=== PATIENT | male | born 1940 | race Asian ===

== ENCOUNTER → 2024-05-25 | Outpatient (BNVA) | payer MEDICARE, MEDICAID, SELFPAY | END | disposition home or self-care (01) | PROVIDERS: PCP Family Medicine; Referring Provider Urology; Visit Provider Urology | DX: N40.1 Benign prostatic hyperplasia with lower urinary tract symptoms (principal); N13.8 Other obstructive and reflux uropathy; C61 Malignant neoplasm of prostate; K59.09 Other constipation; E11.9 Type 2 diabetes mellitus without complications; F17.210 Nicotine dependence, cigarettes, uncomplicated; K21.9 Gastro-esophageal reflux disease without esophagitis | CPT/HCPCS: 81003; 99212; G0463 ==

== ENCOUNTER → 2024-11-23 | Outpatient (BNVA) | payer MEDICARE, MEDICAID, SELFPAY | END | disposition home or self-care (01) | PROVIDERS: PCP Nurse Practitioner Family; Referring Provider Nurse Practitioner Family; Visit Provider Urology | DX: N40.1 Benign prostatic hyperplasia with lower urinary tract symptoms (principal); N13.8 Other obstructive and reflux uropathy; C61 Malignant neoplasm of prostate; R97.20 Elevated prostate specific antigen [PSA]; E11.9 Type 2 diabetes mellitus without complications; I10 Essential (primary) hypertension; K59.09 Other constipation; F17.210 Nicotine dependence, cigarettes, uncomplicated; Z71.6 Tobacco abuse counseling; J44.9 Chronic obstructive pulmonary disease, unspecified; K21.9 Gastro-esophageal reflux disease without esophagitis | CPT/HCPCS: 81003; 99212; G0463 ==

== ENCOUNTER → 2025-02-23 | Outpatient (BNVA) | payer MEDICARE, MEDICAID, SELFPAY | END | disposition home or self-care (01) | PROVIDERS: PCP Nurse Practitioner Family; Referring Provider Nurse Practitioner Family; Visit Provider Urology | DX: C61 Malignant neoplasm of prostate (principal); N40.0 Benign prostatic hyperplasia without lower urinary tract symptoms; F17.210 Nicotine dependence, cigarettes, uncomplicated | CPT/HCPCS: 81003; 99212; G0463 ==

== ENCOUNTER 2025-03-13 13:09 | Emergency (ER) | payer MEDICARE, MEDICAID, SELFPAY ==
--- NOTE | 2025-03-13 13:16 | PD.EDSOB ---
ED SOB =RME/HPI General Chief Complaint: Shortness of Breath/Dyspnea Stated Complaint: SOB Time Seen by Provider: 03/13/25 13:23 Arrival date/time: 03/13/25 13:09 Limitations: no limitations RME / HPI RME / HPI Narrative: DR. LINK MAIN ED EVALUATION: 84-year-old male with history of COPD presents to the Emergency Department with complaint of increased shortness of breath today compared to his usual baseline. He denies fevers, chills, chest pain, cough, or any other associated symptoms. Oxygen in place. Related Data Home Medications ?Medication ?Instructions ?Recorded ?Confirmed ferrous sulfate 325 mg (65 mg 325 mg PO QDAY 06/03/19 02/23/25 iron) tablet metformin 500 mg tablet 500 mg PO BID 06/03/19 02/23/25 (Glucophage) Previous Rx's ?Medication ?Instructions ?Recorded albuterol sulfate 2.5 mg/0.5 mL 2.5 mg (0.5 mL) inhalation Q20M 03/13/25 solution for nebulization shortness of breath #30 ea albuterol sulfate 90 mcg/actuation 2 puff inhalation Q6H PRN 03/13/25 aerosol inhaler (Ventolin HFA) shortness of breath or wheezing #8.5 grams prednisone 20 mg tablet See Taper PO QDAY allergic 03/13/25 reaction #18 tabs Allergies Allergy/AdvReac Type Severity Reaction Status Date / Time No Known Allergies Allergy Verified 03/13/25 13:32 Review of Systems Review of Systems Systems Reviewed: All systems reviewed, normal except as documented Past Medical History Past Medical History RESPIRATORY: Positive Chronic Obstructive Pulmonary Disease (COPD), Asthma and Pneumonia GASTROINTESTINAL: Positive Gastrointestinal Disorders and Gastroesophageal Reflux Disease MUSCULOSKELETAL: Positive Musculoskeletal Disorders and Degenerative Joint Disease ENDOCRINE: Positive Endocrine Disorders and Diabetes Mellitus Type 2 HEMATOLOGIC: Positive Anemia Surgical History SURGICAL: Positive Abdominal Surgery Social History SMOKING STATUS: Current every day smoker SUBSTANCE USE: does not use ALCOHOL: Never ED Exam General Limitations: Present no limitations General appearance: Present alert, in no apparent distress and other (chronically ill appearing, thin; oxygen in place) Head Head exam: Present atraumatic Eye Eye exam: Present normal appearance, PERRL and EOMI ENT ENT exam: Present normal exam, normal oropharynx and mucous membranes moist Neck Neck exam: Present normal inspection, full ROM and trachea midline Chest Chest inspection: Present normal inspection and symmetric chest wall rise Respiratory Respiratory exam: Present other (bibasilar crackles) Cardiovascular Cardiovascular exam: Present regular rate, normal rhythm and normal heart sounds Abdominal Exam Abdominal exam: Present soft and normal bowel sounds Extremities Exam Extremities exam: Present normal inspection and full ROM Back Exam Back exam: Present normal inspection and full ROM Neurological Exam Neurological exam: Present alert, oriented X3 and CN II-XII intact Psychiatric Psychiatric exam: Present normal affect and normal mood Skin Skin exam: Present warm, dry, intact and normal color Course Quality Measures none Orders Category Date Time Status EKG (ED ONLY) *Do not use* NOW Care 03/13/25 13:24 Completed Insert [Insert IV] NOW Care 03/13/25 13:24 Active CXRP [XR chest 1V portable] Stat Exams 03/13/25 15:10 Completed EKG (ED Only) Stat Exams 03/13/25 13:24 Draft B-Type Natriuretic Peptide Stat Lab 03/13/25 14:15 Completed Blood Culture (Lab) Stat Lab 03/13/25 14:15 Received CBC Stat Lab 03/13/25 14:15 Completed Comprehensive Metabolic Panel Stat Lab 03/13/25 14:15 Completed Lactic Acid [Lactate (Lactic Acid)] Stat Lab 03/13/25 14:15 Completed Magnesium Stat Lab 03/13/25 14:15 Completed Partial Thromboplastin Time Stat Lab 03/13/25 14:15 Completed Prothrombin Time with INR Stat Lab 03/13/25 14:15 Completed Troponin I Stat Lab 03/13/25 14:15 Completed Urinalysis Stat Lab 03/13/25 16:42 Completed Venous Blood Gas Stat Lab 03/13/25 14:15 Completed ALBUTEROL RT 0.5ml [Proventil Rt 0.5ml] Med 03/13/25 13:24 Discontinued 5 mg INH X1 ONE Furosemide [Lasix Inj] Med 03/13/25 17:13 Discontinued 20 mg IVP X1 ONE MethylPREDNISolone.* [SoluMEDROL Inj] Med 03/13/25 13:24 Discontinued 125 mg IVP X1 ONE Potassium Chloride [K-Dur] Med 03/13/25 13:28 Discontinued 40 meq PO X1 ONE Sodium Chloride 0.9% 1000 ml [Ns] 1,000 ml Med 03/13/25 13:28 Discontinued IV 999 mls/hr Sodium Chloride 0.9% 500 ml [Ns] 500 ml Med 03/13/25 13:24 Discontinued IV 999 mls/hr Sodium Chloride Rt Karen 0.9% [NS Rt Karen 0.9%] Med 03/13/25 13:24 Active 3 ml INH PRN PRN Vital Signs Vital signs: Vital Signs Temperature 97.5 F 03/13/25 13:18 Pulse Rate 91 03/13/25 13:18 Respiratory Rate 20 03/13/25 13:18 Blood Pressure 139/76 H 03/13/25 13:18 Pulse Oximetry (%) 95 03/13/25 13:18 Oxygen Delivery Method Nasal Cannula 03/13/25 13:18 Oxygen Flow Rate 4 03/13/25 13:18 Shortness of Breath / Dyspnea MDM Narrative MDM Narrative:: I, Rima Warner, am scribing for and in the presence of Dr. Link. 84-year-old male with worsening shortness of breath beyond baseline COPD. Exam shows bibasilar crackles and chronic ill appearance. Workup initiated for COPD exacerbation versus infectious or cardiac process. Differential diagnoses include COPD exacerbation, pneumonia, and CHF exacerbation. 1721: Patient will be discharged with COPD exacerbation and pulmonary vascular congestion. Patient data External records reviewed:: [facility] previous records Clinical information provided by:: patient Social determinants that could affect healthcare access:: other (specify) (smokes) Patient has the following chronic illnesses:: COPD How is presenting disease/condition affected by chronic disease/condition?: caused by Evaluation data The following diagnostics were reviewed and interpreted by me:: lab results and EKG tracing(s) (My interpretation: EKG performed at 1332 hours, sinus rhythm, rate 90, no acute changes, no STEMI) Lab and/or radiology exams considered but not ordered:: none Interpretation Summary: Procedure(s): XR chest 1V portable Accession Number(s): [id number] cc: Mamadou Link MD; Pedro Perez MD~ EXAMINATION: AP chest single view TECHNIQUE: AP portable semiupright chest single view Date and time: March 13, 2025, 1524 hours, comparison February 27, 2023 INDICATIONS: Shortness of breath chest pain today. FINDINGS: Normal heart size Ectatic thoracic aorta Moderate vascular congestion. No lobar pneumonia or philippe pulmonary edema Prominent osteopenia IMPRESSION: Moderate vascular congestion No philippe pulmonary edema, no lobar pneumonia Dictated By: Pedro Perez MD Medications / Prescriptions Medications or Prescriptions considered but not ordered:: none Medication administrations:: Medication Administration History Sodium Chloride (Sodium Chloride Rt Karen 0.9% 3 Ml Nebu) 3 ml INH PRN PRN PRN Reason: SOLN Stop: 04/12/25 13:23 Last Admin: 03/13/25 13:37 Dose: 3 ml Documented By: PATSY Discontinued Medications Albuterol (Albuterol Rt 2.5 Mg/0.5 Ml Nebu) 5 mg INH X1 ONE Stop: 03/13/25 13:25 Last Admin: 03/13/25 13:37 Dose: 5 mg Documented By: PATSY Furosemide (Furosemide Inj 10 Mg/Ml Vial 2 Ml) 20 mg IVP X1 ONE Stop: 03/13/25 17:14 Last Admin: 03/13/25 17:21 Dose: 20 mg Documented By: EF Sodium Chloride (Ns) 500 mls @ 999 mls/hr IV .Q31M ONE Stop: 03/13/25 13:54 Last Infusion: 03/13/25 15:00 Dose: Infused Documented By: Admin: 03/13/25 13:57 Dose: 999 mls/hr Documented By: EF Sodium Chloride (Ns) 1,000 mls @ 999 mls/hr IV .Q1H1M ONE Stop: 03/13/25 14:28 Last Infusion: 03/13/25 14:59 Dose: Infused Documented By: Admin: 03/13/25 13:58 Dose: 999 mls/hr Documented By: CONNIE Methylprednisolone Sodium Succinate (Methylprednisolone Sod Succ 62.5 Mg/Ml 2ml Vial) 125 mg IVP X1 ONE Stop: 03/13/25 13:25 Last Admin: 03/13/25 13:57 Dose: 125 mg Documented By: EF Potassium Chloride (Potassium Chloride 20 Meq Tabcr) 40 meq PO X1 ONE Stop: 03/13/25 13:29 Last Admin: 03/13/25 15:19 Dose: Not Given Documented By: EF Non-Admin Reason: Cancelled by Provider see above Consultations Consultation(s) initiated? (list below): No Diagnosis Shortness of Breath Differential Diagnosis: other (COPD exacerbation, pneumonia, and CHF exacerbation) Most likely diagnosis given after review of the tests above:: COPD exacerbation Pulmonary vascular congestion Admission Indicated Admission indicated?: not indicated Admission Request Was there a request for admission?: No Disposition Plan Disposition Plan: Discharge Discharge Attestation Discharge Attestation: The patient and all family members were given an opportunity to ask questions and understood the discharge instructions. Discharge instructions specifically effects, indications for sooner follow up or return to the emergency department, and the expected course of current diagnosis. Patient condition: Stable Discharge Plan Plan Patient Disposition: HOME (Self Care) Patient condition on transfer: Stable Prescriptions/Referrals Prescriptions/Med Rec: New prednisone 20 mg tablet See Taper PO QDAY MDD 3 Qty: 18 0RF Taper: Prednisone Taper 20 mg DAILY for 2 Days and 0 Hour Rx Instructions: Take 3 Tabs q Day for 3 days then take 2 tabs q Day for 3 days then take 1 tablet q Day for 3 days then D/C #18 albuterol sulfate 2.5 mg/0.5 mL solution for nebulization 2.5 mg inhalation Q20M MDD 10 mg Qty: 30 2RF Rx Instructions: for up to 3 doses albuterol sulfate [Ventolin HFA] 90 mcg/actuation HFA aerosol inhaler 2 puff inhalation Q6H MDD 8 puffs PRN (Reason: shortness of breath or wheezing) Qty: 8.5 2RF No Action metformin [Glucophage] 500 mg Tablet 500 mg PO BID ferrous sulfate 325 mg (65 mg iron) Tablet 325 mg PO QDAY Problem List Clinical Impression: COPD exacerbation, Pulmonary vascular congestion Patient/Caregiver Discharge Instructions Discharge Activity: activity as tolerated Education Materials: Discharge Instructions: COPD, COPD: Using Inhalers, ED COPD Flare Additional Instructions: Please see your doctor in 2 to 3 days. The chest x-ray showed vascular congestion and his medications may need to be changed please ask your doctor to take a look. Please take the medications as prescribed. Medication has been included for home nebulizer. Print Language: Albanian Stand Alone Forms: Lisandra Award Info., Patient Portal Info Letter
[2025-03-13 13:18] VITALS: BP 139/76; PULSE 91; RESP 20; TEMP 36.4; O2SAT 95
--- NOTE | 2025-03-13 13:24 | EKG_ITS ---
[facility] Test Date: 2025-03-13 Pat Name: ENRICO BERAD Department: Room: - Gender: Male Public Relations Consultant: : 1940 Requested By: Mamadou Moody Order Number: [id number] Reading MD: Mamadou Moody Measurements Intervals [place] Rate: 90 P: 43 FL: 163 QRS: 53 QRSD: 90 T: 83 QT: 360 QTc: 441 Interpretive Statements SINUS RHYTHM WITH FREQUENT SUPRAVENTRICULAR PREMATURE COMPLEXES ST DEVIATION AND MODERATE T-WAVE ABNORMALITY, CONSIDER ANTERIOR ISCHEMIA [-0.1+ mV T-WAVE IN V3/V4] Compared to ECG 05/23/2022 16:31:51 Possible ischemia now present T-wave abnormality still present /store/S0/[id number].pdf
[2025-03-13 13:26] VITALS: PULSE 102; RESP 24; O2SAT 96; BMI 13.7
[2025-03-13 13:37] VITALS: PULSE 121; PULSE 88; RESP 22; O2SAT 98
[2025-03-13] MEDS: SODIUM CHLORIDE RT SOL 0.9% 3 ML NEBU INH (13:37)
[2025-03-13] MEDS: ALBUTEROL RT 2.5 MG/0.5 ML NEBU 5 MG INH (13:37)
[2025-03-13] MEDS: MethylPREDNISolone SOD SUCC 62.5 MG/ML 2ML VIAL 125 MG IVP (13:57)
[2025-03-13] MEDS: SODIUM CHLORIDE 0.9% 500 ML 500 ML 999 ML IV (13:57)
[2025-03-13] MEDS: SODIUM CHLORIDE 0.9% 1000 ML 1,000 ML 999 ML IV (13:58)
[2025-03-13 14:21] LABS: Base Excess, Venous 4 (-3-3); Lactate (Lactic Acid) 2.0 mMol/L (0.4-2.0); O2 Saturation, Venous 82 % (96-97); PCO2, Venous 36 mmHg (36-56); PO2, Venous 44 mmHg (15-58); pH, Venous 7.50 (7.33-7.66)
[2025-03-13 14:30] LABS: Basophils # (Auto) 0.0 Thou/mm3 (0.0-0.2); Basophils % (Auto) 0 % (0-2.5); Eosinophils # (Auto) 0.0 Thou/mm3 (0.0-0.5); Eosinophils % (Auto) 0 % (0-10); Hematocrit 27.7 % (41.0-53.0); Hemoglobin 9.6 g/dL (13.5-16.0); Immature Granulocytes Auto 0.00 Thou/mm3 (0.00-0.00); Lymphocytes # (Auto) 1.3 Thou/mm3 (1.0-4.8); Lymphocytes % (Auto) 25 % (10-50); Mean Corpuscular HGB Conc 34.7 g/dl (31.0-37.0); Mean Corpuscular Hemoglobin 25.8 pg (25.0-35.0); Mean Corpuscular Volume 75 fL (80-100); Monocytes # (Auto) 0.4 Thou/mm3 (0.0-0.8); Monocytes % (Auto) 8 % (0-12); Neutrophils # (Auto) 3.5 Thou/mm3 (1.8-7.7); Neutrophils % (Auto) 67 % (37-80); Nucleated Red Blood Cell # 0.00 Thou/mm3 (0.00-0.00); Nucleated Red Blood Cell % 0 /100 WBC (0); Platelet Count 255 Thou/mm3 (140-440); RDW Standard Deviation 37.7 fL (35.1-43.9); Red Blood Count 3.72 Miln/mm3 (4.50-5.90); White Blood Count 5.3 Thou/mm3 (3.8-10.6)
[2025-03-13 14:37] LABS: INR 1.2 (0.9-1.3); Partial Thromboplastin Time 27.6 Seconds (22.0-36.0); Prothrombin Time 12.3 Seconds (9.0-12.2)
[2025-03-13 14:39] LABS: B-Type Natriuretic Peptide 37 pg/mL (0-100)
[2025-03-13 14:41] LABS: Alanine Aminotransferase 11 U/L (10-49); Albumin, Serum 3.7 gm/dL (3.4-4.8); Albumin/Globulin Ratio 1.5 (1.2-2.2); Alkaline Phosphatase 78 U/L (46-116); Anion Gap 9 (7-16); Aspartate Amino Transferase 15 U/L (0-34); BUN/Creatinine Ratio 30 Ratio (12-20); Bilirubin,Total 1.1 mg/dL (0.3-1.2); Blood Urea Nitrogen 21 mg/dL (9-23); Calcium 8.6 mg/dL (8.3-10.6); Calcium (Corrected) 8.8 mg/dL (8.5-10.1); Carbon Dioxide 29.3 mMol/L (20.0-31.0); Chloride 103 mMol/L (98-107); Creatinine (Component) 0.7 mg/dL (0.6-1.3); Estimated Creatinine Clearance 33.7 mL/min (>60); Globulin 2.5 gm/dL (2.3-3.5); Glucose 172 mg/dL (74-106); Magnesium 1.9 mg/dL (1.6-2.6); Osmolality,Calculated 288 (275-295); Potassium 3.4 mMol/L (3.4-5.1); Sodium 141 mMol/L (136-145); Total Protein 6.2 gm/dL (5.7-8.2); Troponin I < 0.020 ng/mL (0.0-0.045); eGFR > 60 See Note
[2025-03-13 14:46] VITALS: BP 116/54; PULSE 93; RESP 27; TEMP 36.7; O2SAT 100
--- NOTE | 2025-03-13 15:10 | XR_ITS ---
EXAMINATION: AP chest single view TECHNIQUE: AP portable semiupright chest single view Date and time: March 13, 2025, 1524 hours, comparison February 27, 2023 INDICATIONS: Shortness of breath chest pain today. FINDINGS: Normal heart size Ectatic thoracic aorta Moderate vascular congestion. No lobar pneumonia or philippe pulmonary edema Prominent osteopenia IMPRESSION: Moderate vascular congestion No philippe pulmonary edema, no lobar pneumonia
[2025-03-13 16:35] VITALS: BP 119/91; PULSE 93; RESP 20; TEMP 36.5; O2SAT 94
[2025-03-13 16:48] LABS: Collection Type, Urine Clean Catch
[2025-03-13 17:17] LABS: Bilirubin,Urine Negative (Negative); Blood,Urine Negative (Negative); Clarity,Urine Clear (Clear/Hazy); Color,Urine Yellow (Lt Yel-Yel); Glucose, Urine Trace (Negative); Ketones,Urine 1+ (Negative); Leukocyte Esterase,Urine Negative (Negative); Nitrite,Urine Negative (Negative); PH,Urine 6.5 (5.0-7.0); Protein,Urine 1+ (Neg - Trace); RBC,Urine 3 /hpf (0-3); Specific Gravity,Urine 1.023 (1.001-1.035); Squamous Epithelial Cell,Urine < 1 /hpf (0-5); Urobilinogen,Urine 6.0 mg/dL (0.0-1.0); WBC,Urine 1 /hpf (0-5)
[2025-03-13 17:21] VITALS: BP 114/65; PULSE 97; PULSE 98; RESP 16; O2SAT 99
[2025-03-13] MEDS: FUROSEMIDE INJ 10 MG/ML VIAL 2 ML 20 MG IVP (17:21)
== END 2025-03-13 17:37 | disposition home or self-care (01) ==
PROVIDERS: Emergency Provider Family Medicine
DX: J44.1 Chronic obstructive pulmonary disease with (acute) exacerbation (principal)
CPT/HCPCS: 36415; 71045; 80053; 81001; 82803; 83605; 83735; 83880; 84484; 85025; 85610; 85730; 87040; 93005; 94640; 96361; 96374; 96375; 99284; J1938; J2919; J7030; J7999; J7611